=== PATIENT | male | born 1965 | race Caucasian/White ===

== ENCOUNTER 2019-03-18 22:26 | Emergency (ER) | payer SELFPAY ==
[~2019-03-18] VITALS: Ht 182.9 cm; Wt 114.8 kg
--- NOTE | 2019-03-18 22:30 | NUR ---
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 PT W/ HX OF SEIZUR AND ON SEIZURE MEDS. NO INJURY DURING SEIZURE WAS REPORTED OR NOTED. PT WAS PLACED JERRY MONITOR, VSS,
[2019-03-18] MEDS ORDERED: IV NS 0.9% 500 ML BAG IV ONE (23:00)
[2019-03-18] MEDS ORDERED: LamoTRIgine 100 MG TABLET PO SCH (23:00)
[2019-03-18] MEDS ORDERED: GABAPENTIN 100 MG CAPSULE PO ONE (23:00)
[2019-03-18 23:05] LABS: BASOPHILS % (AUTO) 0.5 % (0.0-2.0); EOSINOPHILS % (AUTO) 1.4 % (0.0-6.0); HEMATOCRIT 42 % (39-51); HEMOGLOBIN 14.6 g/dL (13.5-17.5); LYMPHOCYTES # (AUTO) 1.7 /CMM (0.8-4.8); LYMPHOCYTES % (AUTO) 23.2 % (20.0-44.0); MEAN CORPUSCULAR HGB CONC 35 g/dl (31.0-36.0); MEAN CORPUSCULAR VOLUME 94 fL (80-96); MONOCYTES # (AUTO) 0.6 /CMM (0.1-1.30); MONOCYTES % (AUTO) 8.7 % (2.0-12.0); NEUTROPHILS # (AUTO) 4.9 /CMM (1.8-8.9); NEUTROPHILS % (AUTO) 66.2 % (43.0-81.0); PLATELET COUNT (AUTO) 194 /CMM (150-450); RED BLOOD CELL COUNT(AUTO) 4.46 MIL/uL (4.5-6.0); WHITE BLOOD COUNT (AUTO) 7.5 K/uL (4.3-11.0)
[2019-03-18 23:12] LABS: CALCIUM, SERUM 8.8 mg/dL (8.5-10.1); CREATININE 0.9 mg/dL (0.6-1.3); POTASSIUM 3.8 mmol/L (3.5-5.1)
[2019-03-18] MEDS ORDERED: GABAPENTIN 100 MG CAPSULE ONE (23:43)
[2019-03-18] MEDS ORDERED: GABAPENTIN 300 MG CAPSULE ONE (23:43)
[2019-03-18] MEDS ORDERED: LamoTRIgine 100 MG TABLET ONE (23:49)
--- NOTE | 2019-03-19 00:11 | NUR ---
ATTEMPTED MULTIPLE TIMES TO INSERT AN IV LINE BUT UNSUCCESSFUL. MADE AWARE.
--- NOTE | 2019-03-19 00:41 | NUR ---
Patient discharged to home in stable condition. Written and verbal after care instructions given. Patient verbalizes understanding of instruction.
--- NOTE | 2019-03-19 00:41 | NUR ---
FRIEND WILL PROVIDE TIDE BACK HOME
[2019-03-19 00:43] VITALS: BP 123/89
== END 2019-03-19 00:44 | disposition home or self-care (01) ==
LOC: ER 22:27
DX: G40.909 Epilepsy, unspecified, not intractable, without status epilepticus (principal)
CPT/HCPCS: 36415; 80048; 85025; 99283; J7040